=== PATIENT | male | born 1985 | race Caucasian/White ===

== ENCOUNTER 2021-04-02 16:13 | Emergency (ER) | payer MEDICAID, OTHER ==
[~2021-04-02] VITALS: Ht 167.6 cm; Wt 68.0 kg
[2021-04-02 16:19] VITALS: BP 108/70
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
[2021-04-02] MEDS ORDERED: IBUPROFEN 600 MG TABLET PO ONE (16:30)
[2021-04-02] MEDS ORDERED: ACETAMINOPHEN ES 500 MG TABLET PO ONE (16:30)
[2021-04-02] MEDS ORDERED: ACETAMINOPHEN ES 500 MG TABLET ONE (16:53)
[2021-04-02] MEDS ORDERED: IBUPROFEN 600 MG TABLET ONE (16:53)
--- NOTE | 2021-04-02 17:04 | NUR ---
MEDICATED PER ORDER FOR BODY ACHES 03/13. WILL CONTINUE TO MONITOR THE PATIENT.
[2021-04-02] MEDS ORDERED: IBUP-1957 PO (17:20)
--- NOTE | 2021-04-02 17:33 | NUR ---
Patient discharged to home in stable condition. Written and verbal after care instructions given. Patient verbalizes understanding of instruction.
== END 2021-04-02 17:35 | disposition home or self-care (01) ==
LOC: ER 16:17
DX: S70.02XA Contusion of left hip, initial encounter (principal); S40.012A Contusion of left shoulder, initial encounter; Z98.890 Other specified postprocedural states; Z60.2 Problems related to living alone; V49.49XA Driver injured in collision with other motor vehicles in traffic accident, initial encounter; Y93.89 Activity, other specified; Y92.413 State road as the place of occurrence of the external cause; Y99.8 Other external cause status
CPT/HCPCS: 73502

== ENCOUNTER 2021-12-15 09:54 | Inpatient (IN) | payer OTHER ==
[~2021-12-15] VITALS: Ht 177.8 cm; Wt 62.6 kg
[~2021-12-15 09:54] MED LIST: IBUP-1957 PO
[2021-12-15] MEDS ORDERED: IV NS 0.9% 1,000 ML BAG IV ONE (10:00)
[2021-12-15 10:38] LABS: BASOPHILS % (AUTO) 0.4 % (0.0-2.0); EOSINOPHILS % (AUTO) 1.9 % (0.0-6.0); HEMATOCRIT 33 % (39-51); HEMOGLOBIN 10.7 g/dL (13.5-17.5); LYMPHOCYTES # (AUTO) 0.9 K/uL (0.8-4.8); LYMPHOCYTES % (AUTO) 20.7 % (20.0-44.0); MEAN CORPUSCULAR HGB CONC 33 g/dl (31.0-36.0); MEAN CORPUSCULAR VOLUME 85 fL (80-96); MONOCYTES # (AUTO) 0.4 K/uL (0.1-1.30); MONOCYTES % (AUTO) 9.6 % (2.0-12.0); NEUTROPHILS % (AUTO) 67.4 % (43.0-81.0); PLATELET COUNT (AUTO) 385 K/uL (150-450); RED BLOOD CELL COUNT(AUTO) 3.89 MIL/uL (4.5-6.0); WHITE BLOOD COUNT (AUTO) 4.5 K/uL (4.3-11.0)
[2021-12-15 10:56] LABS: ALBUMIN 1.9 g/dL (3.4-5.0); BILIRUBIN,DIRECT 0.1 mg/dL (0.0-0.2); BILIRUBIN,TOTAL 0.3 mg/dL (0.2-1.0); CALCIUM, SERUM 8.1 mg/dL (8.5-10.1); CREATININE 0.8 mg/dL (0.6-1.3); POTASSIUM 3.8 mmol/L (3.5-5.1)
--- NOTE | 2021-12-15 10:57 | NUR ---
MOVE SHEET SUBMITTED AND CALLED FOR [facility] BED.
[2021-12-15] MEDS ORDERED: HYDROMORPHONE 1 MG/1 ML DISP.SYRIN IV ONE ×2 (11:00→14:00)
[2021-12-15] MEDS ORDERED: ONDANSETRON HCL/PF 4 MG/2 ML VIAL IV ONE ×2 (11:00→14:00)
[2021-12-15] MEDS ORDERED: GABA600T12 PO (11:17)
[2021-12-15] MEDS ORDERED: ADAL40PE5 SQ (11:17)
[2021-12-15] MEDS ORDERED: HYDROMORPHONE 1 MG/1 ML DISP.SYRIN ONE ×2 (11:35→13:55)
[2021-12-15] MEDS ORDERED: ONDANSETRON HCL/PF 4 MG/2 ML VIAL ONE ×2 (11:35→13:54)
[2021-12-15] MEDS ORDERED: IOHEXOL-300 100 ML VIAL IV ONE (11:39)
[2021-12-15] MEDS ORDERED: IV NS 0.9% 250 ML IV ONE (11:39)
[2021-12-15] MEDS ORDERED: CT SWABBABLE VALVE TRANS SET 1 EA INFUS.SET MC ONE (11:39)
--- NOTE | 2021-12-15 11:39 | NUR ---
WHEELED OUT VIA GURNEY FOR CT ABDOMEN PELVIS W
--- NOTE | 2021-12-15 12:41 | NUR ---
[facility] CALLED REFUSE COLLECTOR PAGED.
--- NOTE | 2021-12-15 12:43 | NUR ---
RAPID COVID TEST COLLECTED AND SENT
--- NOTE | 2021-12-15 13:19 | NUR ---
GOT BED 315-2
[2021-12-15] MEDS ORDERED: methylPREDNISolone SOD SUCC 125 MG/2ML VIAL IV ONE (13:30)
[2021-12-15] MEDS ORDERED: PIPERACILLIN /TAZOBACTAM 3.375 G in IV D5W 50 ML IV ONE (13:30)
[2021-12-15] MEDS ORDERED: methylPREDNISolone SOD SUCC 125 MG/2ML VIAL ONE (13:37)
[2021-12-15] MEDS ORDERED: IV NS 0.9% 1,000 ML IV ONE (14:00)
[2021-12-15 14:12] LABS: BILIRUBIN,URINE SMALL (NEGATIVE); COLOR,URINE YELLOW (YELLOW); LEUKOCYTE ESTERASE ,URINE NEGATIVE (NEGATIVE); NITRITE, URINE NEGATIVE (NEGATIVE); PH,URINE 5.5 (5.0-8.0); PROTEIN,URINE NEGATIVE (NEGATIVE); UGLUCOSE NEGATIVE (NEGATIVE); UROBILINOGEN,URINE 0.2 EU/dL (0.2)
[2021-12-15 14:37] LABS: RBC,URINE NONE SEEN /HPF (0-2); WBC,URINE NONE SEEN /HPF (0-3)
[2021-12-15 14:38] LABS: BACTERIA,URINE None seen /HPF (None Seen); CALCIUM OXALATE CRYSTALS,UR Few /HPF (None Seen); SQUAMOUS EPITHELIAL CELL,UR 0-2 /HPF (None Seen)
--- NOTE | 2021-12-15 14:55 | NUR ---
REPORT GIVEN TO ELVIRA SAMUELS OF MS UNIT
[2021-12-15] MEDS ORDERED: MAG HYDROX/AL HYDROX/SIMETH 30 ML UDC PO PRN (16:00)
[2021-12-15] MEDS ORDERED: MAGNESIUM HYDROXIDE 30 ML UDC PO PRN (16:00)
[2021-12-15] MEDS ORDERED: ACETAMINOPHEN 325 MG TABLET PO PRN (16:00)
[2021-12-15] MEDS: GABAPENTIN 300 MG CAPSULE PO SCH (16:38)
[2021-12-15] MEDS: IV NS 0.9% 1,000 ML IV PRN (16:38)
[2021-12-15] MEDS ORDERED: Medication Not On Formulary EA (Gabapentin 600 MG) PO SCH (17:00)
[2021-12-15] MEDS ORDERED: Z GUARD REMEDY 4 OZ OINT TP PRN (17:00)
[2021-12-15] MEDS: MORPHINE SULFATE INJ 2 MG/ML DISP.SYRIN IV PRN ×2 (17:58→21:58)
--- NOTE | 2021-12-15 18:00 | NUR ---
RN CLOSE NOTE PATIENT IN BED, IN NO ACUTE DISTRESS OBSERVED. RESPIRATION EVEN AND UNLABORED ON ROOM AIR. SKIN IS WARM TO TOUCH KEEP CLEAN//DRY, INTACT NEW IV SITE. KEPT ELEVATED HOB FOR ENSURE AIRWAY AND ASPIRATION PRECAUTION. ALSO LOWEST POSITION OF THE BED FOR SAFETY. CALL LIGHT WITHIN REACH, WILL ENDORSE TO DRUG ENFORCEMENT ADMINISTRATION AGENT.
[2021-12-15 20:00] VITALS: BP 140/71
[2021-12-15] MEDS ORDERED: ZOLPIDEM TARTRATE 5 MG TABLET PO PRN (22:00)
--- NOTE | 2021-12-15 23:46 | NUR ---
Patient reports having 10/ abdominal pain described as continuous dull pain with increasing sharp shooting cramps. Patient states Diltamid works for him better. Contacted on-call Dr. Randall Burton for now but change morphine 2mg IV to PRN Q3H. Addendum: 12/16/21 at 0000 by DIRK ARRIAGA RN says okay to give first dose of new order now then q3h but patient is asleep. Will check back on patient soon.
[2021-12-16] MEDS: MORPHINE SULFATE INJ 2 MG/ML DISP.SYRIN IV PRN ×3 (00:12→06:47)
[2021-12-16] MEDS: IV NS 0.9% 1,000 ML IV PRN ×3 (01:17→23:06)
--- NOTE | 2021-12-16 07:00 | NUR ---
RN CLOSING NOTES Patient is A&Ox4. c/o abdominal pain multiple times throughout shift. Managed better with PRN Morphine Q3H but patient still was not able to sleep well waking up intermittently. NPO. LAC #20G-NS running at 125cc/hr. Currently awake at this on his phone in bed. No signs of distress.
--- NOTE | 2021-12-16 07:22 | NUR ---
MS RN OPENING NOTES RECEIVED PT IN BED ASLEEP, EASILY AWAKEN UPON CALL. A/OX4. ABLE TO MAKE NEEDS KNOWN. ON RA, TOLERATING WELL. BREATHING EVEN AND UNLABORED. NOT IN ANY SIGN OF DISTRESS. LAC G #20 IV ACCESS INTACT WITH NS RUNNING AT 125 ML/HR. PATIENT ON NPO AT THIS TIME. SAFETY MEASURES IN PLACE: BED IN LOWEST AND LOCKED POSITION, SIDE RAILS UPX2, CALL LIGHT WITHIN EASY REACH. WILL CONTINUE TO MONITOR PT AND WITH PLAN OF CARE.
--- NOTE | 2021-12-16 07:45 | NUR ---
RN NOTES PT SEEN BY DR JACKSON WITH ORDER TO D/C MORPHINE IV 2MG Q3HR PRN AND ADMINISTER DILAUDID 1MG IV Q4HRS PRN.
[2021-12-16 08:00] VITALS: BP 110/64
[2021-12-16 08:01] LABS: BASOPHILS % (AUTO) 0.2 % (0.0-2.0); EOSINOPHILS % (AUTO) 0.3 % (0.0-6.0); HEMATOCRIT 30 % (39-51); HEMOGLOBIN 9.8 g/dL (13.5-17.5); LYMPHOCYTES # (AUTO) 1.1 K/uL (0.8-4.8); LYMPHOCYTES % (AUTO) 24.5 % (20.0-44.0); MEAN CORPUSCULAR HGB CONC 32 g/dl (31.0-36.0); MEAN CORPUSCULAR VOLUME 85 fL (80-96); MONOCYTES # (AUTO) 0.5 K/uL (0.1-1.30); MONOCYTES % (AUTO) 11.5 % (2.0-12.0); NEUTROPHILS # (AUTO) 2.7 K/uL (1.8-8.9); NEUTROPHILS % (AUTO) 63.5 % (43.0-81.0); PLATELET COUNT (AUTO) 336 K/uL (150-450); RED BLOOD CELL COUNT(AUTO) 3.57 MIL/uL (4.5-6.0); WHITE BLOOD COUNT (AUTO) 4.3 K/uL (4.3-11.0)
[2021-12-16 08:11] LABS: CALCIUM, SERUM 8.1 mg/dL (8.5-10.1); CREATININE 0.9 mg/dL (0.6-1.3); MAGNESIUM 1.7 mg/dL (1.8-2.4); PHOSPHORUS 3.1 mg/dL (2.5-4.9); POTASSIUM 4.4 mmol/L (3.5-5.1)
[2021-12-16] MEDS: methylPREDNISolone SOD SUCC 125 MG/2ML VIAL IV SCH (08:45)
[2021-12-16] MEDS: HYDROMORPHONE 1 MG/1 ML DISP.SYRIN IV PRN ×4 (09:52→21:53)
--- NOTE | 2021-12-16 09:53 | NUR ---
RN NOTE PT COMPLAINED OF THROBBING AND SHARP PAIN ON THE LEFT LOWER ABDOMEN WITH PAIN SCALE LEVEL OF 10/10. DILAUDID 1MG IVP GIVEN ORDERED PRN AT 0952. WILL MONITOR AND REASSESS PT.
[2021-12-16] MEDS: Magnesium 1GM/D5W 100ML PREMIX 100 ML IV SCH ×2 (10:20→11:24)
--- NOTE | 2021-12-16 12:47 | NUR ---
RN NOTES PT NOTED WITH LOW LEVEL MAGNESIUM 1.7 TODAY, ADMINISTERED MAGNESIUM 1MG/100ML IV X2 DOSES ORDERED.
[2021-12-16] MEDS: GABAPENTIN 300 MG CAPSULE PO SCH ×2 (13:00→16:45)
[2021-12-16] MEDS: ONDANSETRON HCL/PF 4 MG/2 ML VIAL IVP PRN (13:55)
--- NOTE | 2021-12-16 14:05 | NUR ---
RN NOTES PT C/O NAUSEA AND LEFT LOWERS ABDOMINAL PAIN , 10/10 SCALE. PRN ZOFRAN 4MGIVP AND DILAUDID 1MG ADMINISTERED AT 1355. WILL CONTINUE TO MONITOR AND REASSESS PT.
[2021-12-16 16:00] VITALS: BP 94/65
--- NOTE | 2021-12-16 19:20 | NUR ---
MS RN CLOSING NOTES PT IN BED AWAKE. A/OX4. ABLE TO MAKE NEEDS KNOWN. ON RA, TOLERATING WELL. BREATHING EVEN AND UNLABORED. NOT IN ANY SIGN OF DISTRESS. LAC G #20 IV ACCESS INTACT WITH NS RUNNING AT 125 ML/HR. PATIENT ON NPO AT THIS TIME. PT IS AMBULATORY BUT ALSO ENCOURAGED PT TO TURN AND REPOSITIONED Q2HRS AND NEEDED TO PREVENT PRESSURE IN SKIN WHILE IN BED. ALL NEEDS AND CARE PROVIDED TO PT. SAFETY MEASURES IN PLACE: BED IN LOWEST AND LOCKED POSITION, SIDE RAILS UPX2, CALL LIGHT WITHIN EASY REACH. ENDORSED TO VENEER TRIMMER NURSE.
--- NOTE | 2021-12-16 19:30 | NUR ---
MS/RN OPENING NOTE RECEIVED PATIENT RESTING IN BED. AWAKE, ALERT AND ORIENTED X 4. ABLE TO MAKE NEEDS KNOWN. DENIES PAIN AT THIS TIME. CONTINUES ON ROOM AIR WITH NO S/SX OF RESPIRATORY DISTRESS NOTED. IV ACCESS TO LEFT AC #20G INTACT AND PATENT. CONTINUES ON IVF NS @ 125ML/HR. CONTINUES ON NPO STATUS. PATIENT IS AMBULATORY WITH STEADY GAIT. CALL LIGHT WITHIN REACH. ASPIRATION, FALL AND SAFETY PRECAUTIONS MAINTAINED. WILL CONTINUE TO MONITOR.
[2021-12-16 20:31] VITALS: BP 103/66
--- NOTE | 2021-12-16 21:31 | NUR ---
MS/RN NOTE PATIENT WITH C/O INCREASED PAIN TO ABDOMEN. CURRENT PAIN LEVEL 8/10. PRN DILAUDID NOT DUE YET. NOTIFIED CEMENT PAVER MD CUMMINGS WITH NEW ORDER FOR DILAUDID 1MG Q3HRS PRN FOR SEVERE PAIN. ORDER INPUTTED AND CARRIED OUT.
[2021-12-17] MEDS: HYDROMORPHONE 1 MG/1 ML DISP.SYRIN IV PRN ×8 (01:01→22:12)
--- NOTE | 2021-12-17 06:30 | NUR ---
MS/RN CLOSING NOTE PATIENT CURRENTLY RESTING IN BED. AWAKE, ALERT AND ORIENTED X 4. ABLE TO MAKE NEEDS KNOWN. DENIES PAIN AT THIS TIME. CONTINUES ON ROOM AIR WITH NO S/SX OF RESPIRATORY DISTRESS NOTED. IV ACCESS TO LEFT AC #20G INTACT AND PATENT. CONTINUES ON IVF NS @ 125ML/HR. CONTINUES ON NPO STATUS. PATIENT IS AMBULATORY WITH STEADY GAIT. CALL LIGHT WITHIN REACH. ASPIRATION, FALL AND SAFETY PRECAUTIONS MAINTAINED. WILL ENDORSE PLAN OF CARE TO ONCOMING SHIFT.
[2021-12-17] MEDS: ONDANSETRON HCL/PF 4 MG/2 ML VIAL IVP PRN (07:08)
--- NOTE | 2021-12-17 07:12 | NUR ---
MS/RN NOTE PATIENT WITH C/O NAUSEA. NO EPISODES OF VOMITING NOTED. ADMINISTERED PRN ZOFRAN PER MD ORDER. WILL ENDORSE TO AM RN.
--- NOTE | 2021-12-17 07:59 | NUR ---
RN OPENING NOTE PATIENT RESTING IN BED. AWAKE, ALERT AND ORIENTED X 4. ABLE TO MAKE NEEDS KNOWN. STATES HE HAS PAIN BUT JUST GIVEN RX BY NOC RN. . CONTINUES ON ROOM AIR WITH NO S/SX OF RESPIRATORY DISTRESS NOTED. IV ACCESS TO LEFT AC #20G INTACT AND PATENT. CONTINUES ON IVF NS @ 125ML/HR. DR JACKSON PLACED HIM ON CL LIQUIDS. PATIENT IS AMBULATORY WITH STEADY GAIT. CALL LIGHT WITHIN REACH. ASPIRATION, FALL AND SAFETY PRECAUTIONS MAINTAINED. WILL CONTINUE TO MONITOR / ASSIST
[2021-12-17 08:10] LABS: BASOPHILS % (AUTO) 0.2 % (0.0-2.0); EOSINOPHILS % (AUTO) 0.7 % (0.0-6.0); HEMATOCRIT 30 % (39-51); HEMOGLOBIN 9.8 g/dL (13.5-17.5); LYMPHOCYTES # (AUTO) 1.1 K/uL (0.8-4.8); LYMPHOCYTES % (AUTO) 25.5 % (20.0-44.0); MEAN CORPUSCULAR HGB CONC 33 g/dl (31.0-36.0); MEAN CORPUSCULAR VOLUME 85 fL (80-96); MONOCYTES # (AUTO) 0.6 K/uL (0.1-1.30); MONOCYTES % (AUTO) 13.6 % (2.0-12.0); NEUTROPHILS # (AUTO) 2.6 K/uL (1.8-8.9); PLATELET COUNT (AUTO) 374 K/uL (150-450); RED BLOOD CELL COUNT(AUTO) 3.52 MIL/uL (4.5-6.0); WHITE BLOOD COUNT (AUTO) 4.3 K/uL (4.3-11.0)
[2021-12-17 08:57] VITALS: BP 117/76
[2021-12-17 09:00] LABS: CALCIUM, SERUM 7.7 mg/dL (8.5-10.1); CREATININE 0.8 mg/dL (0.6-1.3); MAGNESIUM 1.7 mg/dL (1.8-2.4); POTASSIUM 3.7 mmol/L (3.5-5.1)
[2021-12-17] MEDS: GABAPENTIN 300 MG CAPSULE PO SCH ×3 (09:11→17:08)
[2021-12-17] MEDS: methylPREDNISolone SOD SUCC 125 MG/2ML VIAL IV SCH (09:11)
--- NOTE | 2021-12-17 11:14 | NUR ---
SS Note: SW received consult regarding pt. requesting disability application. SW met with pt. and provided pt. with disability information. Pt. is alert and oriented x4. Pt. was cooperative and appeared groomed. Pt. stated that he lives alone and is independent with his ADL's. Pt.'s family lives in [place] [[place] Lopez [phone]] and is aware that pt. is in hospital. Pt. reported no hx of mental health, substance abuse, suicidal ideation, or homicidal ideation. Pt. denies auditory hallucinations, visual hallucinations, paranoia, or delusions. Pt. has no other questions or concerns at this time.
--- NOTE | 2021-12-17 17:50 | NUR ---
RN NOTE- PT C/O ONGOING PAIN . DR JACKSON CHANGED DILAUDID TO 1.5 MG Q3H PRN. CHANGED DIET FROM CLEAR LIQUIDS TO SOFT DIET HE'S TOLERATING WELL.
--- NOTE | 2021-12-17 18:40 | NUR ---
RN CLOSING NOTE PATIENT RESTING IN BED. AWAKE, ALERT AND ORIENTED X 4. ABLE TO MAKE NEEDS KNOWN. . . CONTINUES ON ROOM AIR WITH NO S/SX OF RESPIRATORY DISTRESS NOTED. IV ACCESS TO LEFT AC #20G INTACT AND PATENT. CONTINUES ON IVF NS @ 125ML/HR. DR JACKSON PLACED HIM ON SOFT DIET PATIENT IS AMBULATORY WITH STEADY GAIT. CALL LIGHT WITHIN REACH. ASPIRATION, FALL AND SAFETY PRECAUTIONS MAINTAINED. WILL CONTINUE TO MONITOR / ASSIST
--- NOTE | 2021-12-17 19:30 | NUR ---
MS RN OPENING NOTES PATIENT RECEIVED RESTING IN BED, AAOX4, BREATHING EVEN AND UNLABORED; NO DISTRESS NOTED; TOLERATING ROOM AIR WELL; PATIENT HAS LAC #20G INTACT AND PATENT, FLUSHING WELL; NO S/S OF REDNESS OR INFILTRATION NOTED; PER PREVIOUS SHIFT, IF PATIENT ABLE TO TOLERATE DIET, ADVANCE TO REGULAR DIET PER MD ORDER, MAY BE POSSIBLE D/C IN AM; SAFETY PRECAUTIONS IMPLEMENTED; BED LOCKED IN LOW POSITION; SIDE RAILX2; CALL LIGHT WITHIN REACH; WILL CONT TO MONITOR
[2021-12-17 20:00] VITALS: BP 109/63
--- NOTE | 2021-12-18 00:11 | NUR ---
MS RN NOTES PICTURE TAKEN OF RIGHT LOWER LEG/CALF AREA, PATIENT REPORTING TO HAVE SCABS AND WOULD LIKE IT ASSESSED; PHOTO PLACED IN PATIENT CHART;
[2021-12-18] MEDS: HYDROMORPHONE 1 MG/1 ML DISP.SYRIN IV PRN ×6 (04:10→22:33)
--- NOTE | 2021-12-18 06:25 | NUR ---
MS RN NOTES PATIENT IS HARD STICK, FARM ADVISOR UNABLE TO OBTAIN BLOOD SAMPLES, WILL TRY AGAIN LATER.
--- NOTE | 2021-12-18 06:30 | NUR ---
MS RN CLOSING NOTES PATIENT RESTING IN BED, AAOX4, BREATHING EVEN AND UNLABORED; NO DISTRESS NOTED; TOLERATING ROOM AIR WELL; PATIENT HAS LAC #20G INTACT AND PATENT, FLUSHING WELL; NO S/S OF REDNESS OR INFILTRATION NOTED; PER PREVIOUS SHIFT, PATIENT TOLERATED SOFT DIET WITH NO ISSUES; MAY BE POSSIBLE D/C IN AM; ALL NEEDS RENDERED; SAFETY PRECAUTIONS IMPLEMENTED; BED LOCKED IN LOW POSITION; SIDE RAILX2; CALL LIGHT WITHIN REACH; WILL ENDORSE CONTINUITY OF CARE TO ONCOMING SHIFT
--- NOTE | 2021-12-18 07:30 | NUR ---
MS RN OPENING NOTES RECEIVED PATIENT ON BED, AWAKE AND A/O X4. ON ROOM AIR TOLERATING WELL. NO SOB NOTED. NOT IN DISTRESS. WITH COMPLAINTS OF PAIN IN THE ABDOMEN AT THE SCALE OF 8/10. COMFORT MEASURES PROVIDED. WITH IV ACCESS AT LEFT AC G 20 WITH IVF NS AT 125ML/HR INFUSING WELL. SAFETY MEASURES IN PLACED. CALL LIGHT WITHIN REACH. BED ON LOWEST LOCKED POSITION, SIDE RAILS UP X2. WILL CONTINUE TO MONITOR.
[2021-12-18 08:00] VITALS: BP 113/77
[2021-12-18] MEDS: GABAPENTIN 300 MG CAPSULE PO SCH ×3 (08:03→16:08)
[2021-12-18] MEDS: methylPREDNISolone SOD SUCC 125 MG/2ML VIAL IV SCH (08:03)
[2021-12-18 14:50] LABS: CALCIUM, SERUM 7.6 mg/dL (8.5-10.1); CREATININE 0.9 mg/dL (0.6-1.3); POTASSIUM 3.9 mmol/L (3.5-5.1)
[2021-12-18] MEDS ORDERED: oxyCODONE IR immediate release 5 MG PO PRN (15:30)
[2021-12-18 16:00] VITALS: BP 104/68
[2021-12-18 17:31] LABS: HEMATOCRIT 35 % (39-51); HEMOGLOBIN 11.1 g/dL (13.5-17.5); LYMPHOCYTES # (AUTO) 0.4 K/uL (0.8-4.8); LYMPHOCYTES % (AUTO) 9.7 % (20.0-44.0); MEAN CORPUSCULAR HGB CONC 32 g/dl (31.0-36.0); MEAN CORPUSCULAR VOLUME 83 fL (80-96); MONOCYTES # (AUTO) 0.2 K/uL (0.1-1.30); MONOCYTES % (AUTO) 4.3 % (2.0-12.0); PLATELET COUNT (AUTO) 427 K/uL (150-450); RED BLOOD CELL COUNT(AUTO) 4.19 MIL/uL (4.5-6.0); WHITE BLOOD COUNT (AUTO) 4.6 K/uL (4.3-11.0)
--- NOTE | 2021-12-18 18:36 | NUR ---
MS RN CLOSING NOTES PATIENT ON BED, AWAKE AND A/O X4. ON ROOM AIR TOLERATING WELL. NO SOB NOTED. NOT IN DISTRESS. WITH COMPLAINTS OF PAIN IN THE ABDOMEN AT THE SCALE OF 8/10. COMFORT MEASURES PROVIDED. WITH IV ACCESS AT LEFT AC G 20 WITH IVF NS AT 125ML/HR INFUSING WELL. DUE MEDS GIVEN. SAFETY MEASURES IN PLACED. CALL LIGHT WITHIN REACH. BED ON LOWEST LOCKED POSITION, SIDE RAILS UP X2. WILL ENDORSE TO NEXT SHIFT FOR LACI.
[2021-12-18] MEDS: IV NS 0.9% 1,000 ML IV PRN (18:47)
--- NOTE | 2021-12-18 19:20 | NUR ---
MS RN OPENING NOTES PATIENT ON BED, AWAKE AND A/O X4. ON ROOM AIR TOLERATING WELL. NO SOB NOTED. NOT IN DISTRESS. WITH COMPLAINTS OF PAIN IN THE ABDOMEN AT THE SCALE OF 8/10. PRN DILAUDID WILL BE ADMINISTERED. BP CHECKED 110/75 COMFORT MEASURES PROVIDED. WITH IV ACCESS AT LEFT AC G 20 WITH IVF NS AT 125ML/HR INFUSING WELL. SAFETY MEASURES IN PLACED. CALL LIGHT WITHIN REACH. BED ON LOWEST LOCKED POSITION, SIDE RAILS UP X2. WILL CONTINUE TO MONITOR.
--- NOTE | 2021-12-18 19:34 | NUR ---
MS RN NOTES PRN DILAUDID 1.5 MG GIVEN FOR 8/10 PAIN ON A NUMERIC PAIN SCALE. TOLERATED WELL.WILL CONTINUE TO MONITOR.
[2021-12-18 20:00] VITALS: BP 120/74
--- NOTE | 2021-12-18 22:40 | NUR ---
MS RN NOTES PRN DILAUDID 1.5 MG GIVEN FOR 8/10 PAIN ON A NUMERIC PAIN SCALE. TOLERATED WELL.WILL CONTINUE TO MONITOR.
[2021-12-19] MEDS: HYDROMORPHONE 1 MG/1 ML DISP.SYRIN IV PRN (03:36)
--- NOTE | 2021-12-19 03:41 | NUR ---
MS RN NOTES PRN DILAUDID 1.5 MG GIVEN FOR 8/10 PAIN ON A NUMERIC PAIN SCALE. TOLERATED WELL.WILL CONTINUE TO MONITOR.
[2021-12-19 06:00] LABS: CALCIUM, SERUM 7.8 mg/dL (8.5-10.1); CREATININE 0.7 mg/dL (0.6-1.3); POTASSIUM 3.8 mmol/L (3.5-5.1)
--- NOTE | 2021-12-19 06:33 | NUR ---
MS RN NOTES PRN OXYCODONE 20MG PRN GIVEN FOR 8/10 PAIN ON A NUMERIC PAIN SCALE. TOLERATED WELL. WILL CONTINUE TO MONITOR.
--- NOTE | 2021-12-19 06:38 | NUR ---
MS RN CLOSING NOTES PATIENT IN BED, AWAKE AND A/O X4. ON ROOM AIR TOLERATING WELL. NO SOB NOTED. NOT IN DISTRESS. WITH IV ACCESS AT LEFT AC G20 ATTEMPTED TO REDRESS IV SITE PT REFUSED X3 RISK AND BENEFITS X3 IV FLUSHING WELL. PT DOES NOT WANT IV FLUIDS CONNECTED AT THIS TIME.RISK AND BENEFITS EXPLAINED X3 REFUSED X3. SAFETY MEASURES IN PLACED. CALL LIGHT WITHIN REACH. ALL NEEDS MET THROUGHOUT THE SHIFT. BED ON LOWEST LOCKED POSITION, SIDE RAILS UP X2. WILL ENDORSE CARE TO DAY SHIFT NURSE.
[2021-12-19 06:45] LABS: BASOPHILS % (AUTO) 0.1 % (0.0-2.0); EOSINOPHILS % (AUTO) 0.1 % (0.0-6.0); HEMATOCRIT 28 % (39-51); HEMOGLOBIN 9.2 g/dL (13.5-17.5); LYMPHOCYTES # (AUTO) 1.3 K/uL (0.8-4.8); LYMPHOCYTES % (AUTO) 26.4 % (20.0-44.0); MEAN CORPUSCULAR HGB CONC 33 g/dl (31.0-36.0); MEAN CORPUSCULAR VOLUME 84 fL (80-96); MONOCYTES # (AUTO) 0.7 K/uL (0.1-1.30); MONOCYTES % (AUTO) 13.7 % (2.0-12.0); NEUTROPHILS % (AUTO) 59.7 % (43.0-81.0); PLATELET COUNT (AUTO) 351 K/uL (150-450); RED BLOOD CELL COUNT(AUTO) 3.35 MIL/uL (4.5-6.0)
[2021-12-19] MEDS ORDERED: OXYC20TA58 PO (07:40)
[2021-12-19] MEDS ORDERED: PRED50TA PO (07:40)
[2021-12-19 08:00] VITALS: BP 99/77
--- NOTE | 2021-12-19 08:00 | NUR ---
RN OPENING NOTE PATIENT RECEIVED IN BED, AO X 4, ABLE TO RESPONDS ALL STIMULI. IN NO ACUTE DISTRESS NOTED. RESPIRATORY EVEN AND UNLABORED ON ROOM. SKIN IS WARM TO TOUCH, KEEP CLEAN/DRY, INTACT IV SITE. KEPT ELEVATED HOB FOR ENSURE AIRWAY AND ASPIRATION PRECAUTION, ALSO LOWEST POSITION OF THE BED, S/R UP X 2, ALL SAFETY PRECAUTION APPLIED. CALL LIGHT WITHIN REACH, WILL CONTINUE TO MONITOR.
--- NOTE | 2021-12-19 09:05 | NUR ---
PUBLIC HEALTH SANITARIAN NOTE RECEIVED DISCHARGE ORDER. PATIENT ASKING TO LEAVE SOON POSSIBLE. PATIENT IS A/O X4. PATIENT IS BREATHING EVENLY AND NONLABORED ON ROOM AIR, NO SIGNS OF DISTRESS NOTED. PATIENT DENIES PAIN OR DISCOMFORT AT THIS TIME. PATIENT TOLERATED REGULAR DIET BREAKFAST THIS MORNING NO S/SX OF N/V. PATIENT WAS GIVEN DISCHARGE INSTRUCTIONS BOTH VERBALLY AND IN WRITTEN FORM. PATIENT VERBALIZED UNDERSTANDING. PATIENT WAS GIVEN WRITTEN RX AND RX SENT ELECTRONICALLY. IV ACCESS REMOVED AND PRESSURE DRESSING APPLIED. ID BAND REMOVED. ALL BELONGINGS ACCOUNTED FOR AND BELONGINGS FORM SIGNED. PATIENT LEFT IN STABLE CONDITION VIA PRIVATE CAR.
--- NOTE | 2021-12-19 09:10 | NUR ---
PATIENT D/C TO HOME, GIVEN DISCHARGE INSTRUCTION INCLUDE NEW MEDS. IN NO ACUTE DISTRESS OBSERVED. PATIENT LEFT FACILITY ACCOMPANIED BY STAFF IN STABLE CONDITION.
[2021-12-19] MEDS ORDERED: VALA10002 PO (10:38)
[2021-12-26] MEDS ORDERED: ADALIMUMAB 40 MG/0.4 ML SQ SCH (14:00)
== END 2021-12-19 09:08 | disposition home or self-care (01) | DRG 245 ==
LOC: ER 10:00 → MED 14:21
PROVIDERS: ADMIT Family Medicine; ATTEND Family Medicine
DX: K50.90 Crohn's disease, unspecified, without complications (principal); E43 Unspecified severe protein-calorie malnutrition; E87.1 Hypo-osmolality and hyponatremia; D63.8 Anemia in other chronic diseases classified elsewhere; E88.09 Other disorders of plasma-protein metabolism, not elsewhere classified; E86.1 Hypovolemia; G89.4 Chronic pain syndrome; Z79.891 Long term (current) use of opiate analgesic; K59.00 Constipation, unspecified; Z79.899 Other long term (current) drug therapy; Z20.822 Contact with and (suspected) exposure to COVID-19; Z68.1 Body mass index [BMI] 19.9 or less, adult
CPT/HCPCS: 36415; 80048-TC; 80076-TC; 81001; 82728-TC; 83540-TC; 83690-TC; 83735-TC; 84100-TC; 85025-TC; 87040-TC; 87081-TC; C9803; G0378; J1170; J2270; J2405; J2543; J2930; J3475; J7030; J7050; J7060; Q9967

== ENCOUNTER 2021-12-19 10:01 | Emergency (ER) | payer OTHER ==
[~2021-12-19] VITALS: Ht 170.2 cm; Wt 63.5 kg
[~2021-12-19 10:01] MED LIST changes: +ADAL40PE5 SQ; +GABA600T12 PO; -IBUP-1957 PO; +OXYC20TA58 PO; +PRED50TA PO
--- NOTE | 2021-12-19 10:10 | NUR ---
CALLED TO TRIAGE NO ANSWER.
[2021-12-19 10:27] VITALS: BP 113/61
[2021-12-19] MEDS ORDERED: VALA10002 PO (10:38)
--- NOTE | 2021-12-19 10:42 | NUR ---
Patient discharged to home in stable condition. Written and verbal after care instructions given. Patient verbalizes understanding of instruction.
== END 2021-12-19 10:43 | disposition home or self-care (01) ==
LOC: ER 10:03
DX: B02.9 Zoster without complications (principal); Z87.19 Personal history of other diseases of the digestive system; Z60.2 Problems related to living alone; Z79.891 Long term (current) use of opiate analgesic; Z79.52 Long term (current) use of systemic steroids; Z79.899 Other long term (current) drug therapy

== ENCOUNTER 2021-12-19 19:02 | Emergency (ER) | payer OTHER ==
[~2021-12-19] VITALS: Ht 167.6 cm; Wt 68.0 kg
[~2021-12-19 19:02] MED LIST changes: +VALA10002 PO
[2021-12-19] MEDS ORDERED: OLANZAPINE 10 MG VIAL IM ONE ×2 (19:15→19:30)
[2021-12-19] MEDS ORDERED: diphenhydrAMINE HCL 50 MG/ML VIAL ONE (19:15)
[2021-12-19] MEDS ORDERED: diphenhydrAMINE HCL 50 MG/ML VIAL IM ONE (19:30)
--- NOTE | 2021-12-19 19:45 | NUR ---
Pt bibself screaming/groaning/highly anxious in waiting room. patient taken to er bed 14. pt a/o x 3, rr even, no sob noted. pt c/o "hurting all over". pt connected to cardiac technologist and pox. Will continue to monitor.
[2021-12-19 19:55] LABS: ACETAMINOPHEN 1 ug/ml (10-30); ALANINE AMINOTRANSFERASE 19 U/L (12-78); ALBUMIN 2.2 g/dL (3.4-5.0); ALKALINE PHOSPHATASE 134 U/L (46-116); ASPARTATE AMINOTRANSFERASE 44 U/L (15-37); BILIRUBIN,DIRECT 0.1 mg/dL (0.0-0.2); BILIRUBIN,TOTAL 0.5 mg/dL (0.2-1.0); CALCIUM, SERUM 7.7 mg/dL (8.5-10.1); CARBON DIOXIDE 28 mmol/L (21-32); CHLORIDE 103 mmol/L (98-107); CREATININE 1.1 mg/dL (0.6-1.3); GLUCOSE 157 mg/dL (74-106); POTASSIUM 3.3 mmol/L (3.5-5.1); SODIUM SERUM 137 mmol/L (136-145); TOTAL PROTEIN, SERUM 5.3 g/dL (6.4-8.2); UREA NITROGEN, BLOOD 13 mg/dL (7-18)
[2021-12-19 19:57] LABS: BASOPHILS % (AUTO) 0.1 % (0.0-2.0); EOSINOPHILS % (AUTO) 0.2 % (0.0-6.0); HEMATOCRIT 33 % (39-51); HEMOGLOBIN 10.6 g/dL (13.5-17.5); LYMPHOCYTES # (AUTO) 1.6 K/uL (0.8-4.8); LYMPHOCYTES % (AUTO) 22.3 % (20.0-44.0); MEAN CORPUSCULAR HGB CONC 32 g/dl (31.0-36.0); MEAN CORPUSCULAR VOLUME 86 fL (80-96); MONOCYTES # (AUTO) 0.4 K/uL (0.1-1.30); MONOCYTES % (AUTO) 5.6 % (2.0-12.0); NEUTROPHILS # (AUTO) 5.1 K/uL (1.8-8.9); NEUTROPHILS % (AUTO) 71.8 % (43.0-81.0); PLATELET COUNT (AUTO) 518 K/uL (150-450); RED BLOOD CELL COUNT(AUTO) 3.87 MIL/uL (4.5-6.0); WHITE BLOOD COUNT (AUTO) 7.1 K/uL (4.3-11.0)
--- NOTE | 2021-12-19 20:01 | NUR ---
URINE COLLECTED SENT TO LAB
[2021-12-19 20:06] LABS: SERUM AMMONIA 5 umol/L (11-32)
[2021-12-19 20:18] LABS: THYROID STIMULATING HORMONE 1.905 uIU/mL (0.358-3.74)
[2021-12-19 20:21] LABS: ALCOHOL, BLOOD < 3 mg/dL (0-0)
[2021-12-19 20:22] LABS: ALCOHOL, BLOOD < 3 mg/dL (0-0)
[2021-12-19 20:24] LABS: BILIRUBIN,URINE NEGATIVE (NEGATIVE); COLOR,URINE YELLOW (YELLOW); LEUKOCYTE ESTERASE ,URINE NEGATIVE (NEGATIVE); NITRITE, URINE NEGATIVE (NEGATIVE); PH,URINE 7.5 (5.0-8.0); PROTEIN,URINE NEGATIVE (NEGATIVE); UGLUCOSE NEGATIVE (NEGATIVE); UROBILINOGEN,URINE 0.2 EU/dL (0.2)
[2021-12-19] MEDS ORDERED: oxyCODONE/APAP (5/325 MG) 1 UDTAB TABLET ONE (20:58)
[2021-12-19] MEDS ORDERED: POTASSIUM CHLORIDE 20 MEQ TAB.PRT.SR PO ONE ×2 (20:58→21:00)
[2021-12-19] MEDS ORDERED: oxyCODONE/APAP (5/325 MG) 1 UDTAB TABLET PO ONE (21:00)
--- NOTE | 2021-12-19 21:05 | NUR ---
Patient discharged to home in stable condition. Written and verbal after care instructions given. Patient verbalizes understanding of instruction.
[2021-12-19 21:09] VITALS: BP 138/74
== END 2021-12-19 21:09 | disposition home or self-care (01) ==
LOC: ER 19:03
DX: G89.4 Chronic pain syndrome (principal); K52.9 Noninfective gastroenteritis and colitis, unspecified; Z87.19 Personal history of other diseases of the digestive system; Z86.39 Personal history of other endocrine, nutritional and metabolic disease; Z86.2 Personal history of diseases of the blood and blood-forming organs and certain disorders involving the immune mechanism; Z90.49 Acquired absence of other specified parts of digestive tract; Z60.2 Problems related to living alone; Z79.891 Long term (current) use of opiate analgesic; Z79.52 Long term (current) use of systemic steroids; Z79.899 Other long term (current) drug therapy
CPT/HCPCS: 36415; 51701; 70450; 71045; 80048; 80076; 80143; 80307; 80320 ×2; 81003; 82140; 84443; 85025; 93005; 96372 ×2; 99285; J1200; J3490; G0480